=== PATIENT | female | born 1990 | race Caucasian/White ===

== ENCOUNTER 2019-01-24 10:14 | Emergency (ER) | payer BC, OTHER ==
[~2019-01-24] VITALS: Ht 160 cm; Wt 65.8 kg
[~2019-01-24 10:14] MED LIST: NOHOMEMEDICATIONS; ULTRAM 50MG TAB50 MG PO
[2019-01-24 12:23] LABS: BASOPHILS 0.2 % (0.0-2.0); EOSINOPHILS 0.1 % (0.0-3.0); HEMATOCRIT 41.9 % (37.0-47.0); HEMOGLOBIN 14.1 gm/dL (12.0-15.0); LYMPHOCYTES 9.9 % (24.0-44.0); MCH 32.6 pg (26.0-34.0); MCHC 33.6 g/dL (28.0-37.0); MONOCYTES 6.6 % (1.0-8.0); PLATELET COUNT 300 thou/uL (150-400); POLYS 83.2 % (36.0-66.0); RBC 4.32 mil/uL (4.20-5.00); RDW 13.1 % (10.5-14.5); WBC 14.4 thou/uL (4.0-11.0)
[2019-01-24 12:26] LABS: CALCIUM 9.6 mg/dL (8.5-10.1); CREATININE 0.8 mg/dL (0.6-1.0); POTASSIUM 3.7 mmol/L (3.5-5.1)
[2019-01-24] MEDS ORDERED: MOBIC15 MG PO (14:23)
[2019-01-24] MEDS ORDERED: CLINDAMYCIN HC300 MG PO (14:23)
[2019-01-24 14:53] VITALS: BP 135/78
== END 2019-01-24 15:06 | disposition home or self-care (01) ==
LOC: ER 10:14
PROVIDERS: Emergency Medicine
DX: J03.90 Acute tonsillitis, unspecified (principal); F17.210 Nicotine dependence, cigarettes, uncomplicated